=== PATIENT | female | born 1970 | race Asian ===

== ENCOUNTER 2022-03-30 14:45 | Outpatient (CLI) | payer BC | END 2022-03-30 14:46 | disposition home or self-care (01) | LOC: BICULT 14:45 | PROVIDERS: ATTEND Internal Medicine Nephrology | DX: N18.2 Chronic kidney disease, stage 2 (mild) (principal); N28.89 Other specified disorders of kidney and ureter | CPT/HCPCS: 76770 ==

== ENCOUNTER 2023-03-21 07:34 | Outpatient (CLI) | payer BC | END 2023-03-21 07:35 | disposition home or self-care (01) | LOC: BICULT 07:34 | PROVIDERS: ATTEND Internal Medicine Gastroenterology | DX: R74.01 Elevation of levels of liver transaminase levels (principal); K76.0 Fatty (change of) liver, not elsewhere classified | CPT/HCPCS: 76705 ==